=== PATIENT | female | born 1960 ===

== ENCOUNTER 2023-03-27 12:15 | Outpatient (CLI) | payer OTHER ==
[~2023-03-27 12:15] MED LIST: BENADRYL25 MG PO; CARDURA1 MG PO; CLONAZEPAM0.5 MG PO; ESTAZOLAM1 MG PO; HALOPERIDOL0.5 MG PO; LITHIUM CARBON300 M2 PO; MELATONIN1 MG PO; SYNTHROID75 MCG PO
== END 2023-03-27 12:20 | disposition home or self-care (01) ==
LOC: MAMO-SONO 12:15
PROVIDERS: ATTEND Obstetrics & Gynecology Maternal & Fetal Medicine
DX: N60.19 Diffuse cystic mastopathy of unspecified breast (principal); N63.0 Unspecified lump in unspecified breast; N60.11 Diffuse cystic mastopathy of right breast